=== PATIENT | female | born 1960 | race Caucasian/White ===

== ENCOUNTER 2018-08-26 15:19 | Inpatient (IN) | payer OTHER ==
[~2018-08-26] VITALS: Ht 170.2 cm; Wt 80.0 kg
--- NOTE | 2018-08-26 15:30 | NUR ---
PT BROUGHT IN BY KOLE DAVILA FOR ETOH INTOXICATION AND POSSIBLE OVERDOSE. PT LIVES IN THE BACK HOUSE OF A PROPERTY THAT SHE SHARES WITH HER MOTHER. MOTHER FOUND PT. ON GROUND IN HER HOME. 911 WAS CALLED. UPON ARRIVAL OF EMS PT STATES SHE SHE HAD BEEN DRINKING BEER AND TOOK AND UNKNOWN AMOUNT OF ANTI-ANXIETY MEDICATION. WHEN ASKED WHAT THE MEDICATION IS PT STATES "THEY WERE BLUE" SPEECH IS SLOW AND SLURRED. PT REPETATIVE AND QUESTIONING WHY SHE IS HERE. PT RE-ORIENTED MULTIPLE TIMES. PT ALSO ADMITS TO SI . PT ARRIVED WITH C-COLLAR IN PLACE. CLOTHING REMOVED. PLACED ON CM. KOLE DAVILA AT BEDSIDE TO WRITE [id number] HOLD
--- NOTE | 2018-08-26 15:32 | NUR ---
PT BECOMING AGITATED AND UNCOOPERATIVE. ATTEMPTING TO REMOVE C-COLLAR AND GET OUT OF BED. PT ADVISED SHE WAS NOT STEADY ENOUGHT TO WALK DUE TO ETOH AND MEDICATION INGESTION. PT STATED ' I DON'T GIVE A FUCK WHAT YOU SAY IM GOING TO TO THE BATHROOM' RESTRAINTS APPPLIED FOR PT. SAFETY. PT OFFERED BED HOLDER. PT REFUSED. REMAINS ON CM. AT THIS TIME.
--- NOTE | 2018-08-26 16:00 | NUR ---
PT BELONGINGS TAKEN LABELED AND PLACED IN RADIO ROOM.
--- NOTE | 2018-08-26 16:13 | NUR ---
PT PULLED OUT FIRST IV SL. STARTED NEW IV LOCK TO R FA. AWAITING VITAMIN IV BAG FROM PHARMACY
--- NOTE | 2018-08-26 16:20 | NUR ---
MOTHER AT BEDSIDE CLAIMS THAT PT'S FRIEND ADMITTED TO GIVING PT 20 TABS OF 1MG XANAX. MOTHER CLAIMS PT MAY OR MAY NOT HAVE TAKEN ALL 20. WILL CALL POISON CONTROL
--- NOTE | 2018-08-26 16:22 | NUR ---
XRAY AT BEDSIDE
--- NOTE | 2018-08-26 16:25 | NUR ---
SPOKE WITH POISON CONTROL RAYMON. RECOMMENDATIONS ARE LAB CHECK WITH CBC, CMP, TYLENOL AND ASP LEVEL AND UDS. ALSO MONITOR FOR R DEPRESSSION. NO FURTHER TREATMENT OR RECOMMENDATIONS
[2018-08-26 16:26] LABS: UA SPECIFIC GRAVITY <=1.005 (1.005-1.035); microscopic required? YES; urine erythrocyte 1+ (NEGATIVE)
[2018-08-26 16:26] LABS: BASOPHIL % 1.5 % (0-2); PLATELET COUNT 207 x10^3mcL (130-400); RED CELL DISTRIBUTION WIDTH 15.3 % (11.5-14.5)
[2018-08-26 16:27] LABS: CALCIUM 9.1 mg/dL (8.5-10.1); CARBON DIOXIDE 29.4 mmol/L (21-32); CHLORIDE SERUM 107 mmol/L (98-107); CREATININE SERUM 0.6 mg/dL (0.6-1.0); GFR1 > 60 mL/min; GLUCOSE SERUM 95 mg/dL (74-106); POTASSIUM SERUM 4.4 mmol/L (3.5-5.1); SODIUM SERUM 145 mmol/L (136-145)
[2018-08-26 16:33] LABS: AMPHETAMINE QUAL UR NONE DETECTED (See below)
--- NOTE | 2018-08-26 16:38 | NUR ---
PT UP TO BSC WITH CUSTOMS COMPLIANCE SPECIALIST AT BEDSIDE
[2018-08-26 16:40] LABS: ALBUMIN 3.5 g/dL (3.4-5.0); ALKALINE PHOSPHATASE 110 U/L (46-116); ALT/SGPT 24 U/L (14-59); AST/SGOT 15 U/L (15-37); BILIRUBIN TOTAL 0.2 mg/dL (0.20-1.00); CHOLESTEROL 189 mg/dL (<200); HDL CHOLESTEROL 58 mg/dL (40-60); LIPASE 60 IU/L (73-393); MAGNESIUM 2.2 mg/dL (1.8-2.4); T4(THYROXINE) 6.5 ug/dL (4.7-13.3); TOTAL PROTEIN, SERUM 6.5 g/dL (6.4-8.2)
--- NOTE | 2018-08-26 17:24 | NUR ---
PT REFUSED CT. DR MICHEL AWARE. PT YELLING "DONT TOUCH ME."
--- NOTE | 2018-08-26 17:36 | NUR ---
PT PLACED ON BED HOLDER. PLACED BACK IN RESTRAINTS FOR DANGER TO SELF
--- NOTE | 2018-08-26 18:44 | NUR ---
PT REPOSITIONED FOR COMFORT. REQUESTING RESTRAINTS BE REMOVED. UPON SLEEVE MACHINE TENDER REPORT I WILL PASS ON TO SLEEVE MACHINE TENDER. EXPLAINED TO PT WHY SHE IS IN RESTRAINTS AND THAT IF THEY ARE REMOVED SHE CANNOT RIP OUT HER IV AND RUN OFF. PT VERBALIZED UNDERSTANDING
--- NOTE | 2018-08-26 19:10 | NUR ---
RECEIVED REPORT FROM AARON WEI AND ASSUMED CARE OF PATIENT.
--- NOTE | 2018-08-26 19:26 | NUR ---
PT. CLEARED FOR D/C. GIVEN ACI AND RX. PT. AAOX4, TALKING AND RESPONDING APPROPRIATELY, BREATHING E/U. NOT IN ANY APPARENT DISTRESS. AMBULATED OUT OF ED WITH STEADY GAIT.
--- NOTE | 2018-08-26 19:50 | NUR ---
RESIDENT AT BEDSIDE. PT. REPOSITIONED TO SIT UP IN [facility] PER HER REQUEST. PT. AAOX4, TALKING AND RESPONDING APPROPRIATELY, BREATHING E/U. NAD. STATES SHE DOES NOT REMEMBER WHY SHE WAS BROGUHT HERE. STATES ' I WAS DRINKIG AND TOOK A LITTLE BLUE PILL FOR ANXIETY'. STATES SHE DOES NOT REMEMBER PULLING OUT IV AND BEING PLACED ON RESTRAINTS. PT. COOPERATIVE WITH STAFF AND RESTRAINTS REMOVED. INFORMED PT. THAT IF SHE BECOMES COMBATIVE OR UNCOOPERATIVE WITH STAFF WE WILL HAVE TO PLACE RESTRAINTS BACK ON FOR HER SAFETY. PT. VERBALIZES UNDERSTANING AND AGREES NOT TO PULL OUT IV OR TRY TO GET OUT OF BED. PER DR. ANAND BRIAN TO HAVE WATER AND GIVEN PER HER REQUEST. CALL LIGHT IN REACH. PT. IN FULL VIEW OF NURSING STATION. WILL CONTINUE TO MONITOR.
[2018-08-26 20:13] LABS: CHOLESTEROL/HDL RATIO 3.3
--- NOTE | 2018-08-26 20:50 | NUR ---
PT. TRYING TO GET OUT OF BED AND STATES "I WANT SOME MASSHED POTATOES AND JUICE". PT. TOOK IV OUT AND STATES SHE IS TIRED OF WAITING FOR FOOD. ADVISED PT. TO GET BACK IN BED AND THAT SHE IS ON A HOLD. PT. REFUSING AND STATES " I WANT TO GO AND SMOKE". PT. REORRIENTED AND INFORMED THAT SHE IS ON A HOLD AND CANNOT LEAVE. DR. OBRIEN MADE AWARE AND ATIVAN 1MG IM ORDERED. EMT WAS ABLE TO CALM PATIENT DOWN AND ASSIST HER BACK TO BED. NANDO GIVEN PER HER REQUEST. PT. IN FULL VIEW OF NURSING STATION. WILL CONTINUE TO MONITOR.
--- NOTE | 2018-08-26 21:19 | NUR ---
PT. GIVEN ATIVAN IM PER ORDERS. PT. LAYING ON GURNEY IN POSITON OF COMFORT. BREATHING E/U. NOT IN ANY APPARENT DISTRESS. STATES 'I FEEL BETTER AFTER EATING'. CALL LIGHT IN REACH, WILL CONTINUE TO MONITOR.
--- NOTE | 2018-08-26 21:44 | NUR ---
ASSISTED PT. UP TO BEDSIDE COMMODE. HAD LALY SOFT BM AND APROX 200ML CLEAR YELLOW URINE OUTPUT.
--- NOTE | 2018-08-26 22:01 | NUR ---
SPOKE TO POISON CONTROL AND INFORMED OF PATIENT STATUS. ADVISED TO HAVE BLOOD ALCOHOL AND SALICYLATES DRAWN AGAIN. INFORMD DR. OBRIEN AND STATE SHE WILL ORDER TO HAVE RECHECK OF LABS AT MIDNIGHT.
--- NOTE | 2018-08-26 22:30 | NUR ---
PT. SLEEPING, EASILY ARROUSABLE. BREATHING E/U. IN FULL VIEW OF NURSING STATION. SAFETY PRECAUTIONS IN PLACE. NO COMPLAINTS AT THIS TIME. CALL LIGHT IN REACH. WILL CONTINUE TO MONITOR.
--- NOTE | 2018-08-26 23:30 | NUR ---
PT. SLEEPING EASILY ARROUSABLE. BREATHING E/U. NOT IN ANY APPARENT DISTRESS AT THIS TIME. IN FULL VIEW OF NURSING STATION. CALL LIGHT IN REACH. WILL CONTINUE TO MONITOR.
--- NOTE | 2018-08-26 23:50 | NUR ---
ASSISTED PT. UP TO BEDSIDE COMMODE. VOIDED X1. PT. AAOX4,TALKING AND RESPONDING APPROPRIATELY, BREATHING E/U. NO COMPLAINTS AT THIS TIME. WILL CONTINUE TO MONITOR.
--- NOTE | 2018-08-27 01:05 | NUR ---
PT. SLEEPING. EASILY ARROUSABLE. LAB AT BEDSIDE FOR LAB DRAW. PT. IN FULL VIEW OF NURSING STATION. NO COMPLAITS AT THIS TIME. WILL CONTINUE TO MONITOR.
--- NOTE | 2018-08-27 02:35 | NUR ---
PT. SLEEPING, EASILY ARROUSABLE. BREATHING E/U. NOT IN ANY APPARENT DISTRESS AT THIS TIME. CALL LIGHT IN REACH. WILL CONTINUE TO MONITOR.
--- NOTE | 2018-08-27 03:20 | NUR ---
ASSISTED PT. TO BEDSIDE COMMODE. GAIT UNSTEADY. PT. VOIDED APROX 150ML OF CLEAR YELLOW URINE.
--- NOTE | 2018-08-27 04:00 | NUR ---
SPOKE TO POISON CONTROL AND INFORMED OF PT. STATUS. POISON CONTROL STATES NO FURTHER CONTACT REQUIRED AND CASE HAS BEEN CLOSED.
--- NOTE | 2018-08-27 04:20 | NUR ---
PT. LAYING ON GURNEY IN POSITION OF COMFORT. SLEEPING, EASILY ARROUSABLE. BREATHING E/U. NOT IN ANY APPARENT DISTRESS. IN FULL VIEW OF NURSING STATION. WILL CONTINUE TO MONITOR.
[2018-08-27] MEDS ORDERED: NORCO 10-325 T1 EACH (04:21)
[2018-08-27] MEDS ORDERED: MELOXICAM7.5 M1 (04:21)
[2018-08-27 05:16] LABS: BASOPHIL % 0.7 % (0-2); CALCIUM 8.8 mg/dL (8.5-10.1); CARBON DIOXIDE 28.6 mmol/L (21-32); CHLORIDE SERUM 108 mmol/L (98-107); CREATININE SERUM 0.7 mg/dL (0.6-1.0); GFR1 > 60 mL/min; GLUCOSE SERUM 84 mg/dL (74-106); PLATELET COUNT 188 x10^3mcL (130-400); POTASSIUM SERUM 4.1 mmol/L (3.5-5.1); SODIUM SERUM 145 mmol/L (136-145)
[2018-08-27 05:25] LABS: RED CELL DISTRIBUTION WIDTH 15.2 % (11.5-14.5)
--- NOTE | 2018-08-27 06:10 | NUR ---
ASSISTED PT. UP TO BEDSIDE COMMODE. PT. AAOX4, TALKING AND RESPONDING APPROPRIATELY, BREATHING E/U. NOT IN ANY APPARENT DISTRESS. NO COMPLAINTS AT THIS TIME. PT. CONTINUES TO BE COOPERATIVE WITH STAFF. DENIES PAIN AT THIS TIME. CALL LIGHT IN REACH. PT. IN FULL VIEW OF NURSING STATION. WILL CONTINUE TO MONITOR.
--- NOTE | 2018-08-27 06:25 | NUR ---
PT. REQUESTING NORCO FOR PAIN. STATES SHE TAKES NORCO AT HOME FOR CHRONIC BACK PAIN. SPOKE TO RESIDENT CMO AND INFORMED HIM. STATES HE WILL ORDER PAIN MED FOR PT.
--- NOTE | 2018-08-27 06:30 | NUR ---
SPOKE TO PATIENTS MOM AWAIS AND INFORMED HER OF PATIENTS STATUS. ALL QUESTIONS AND CONCERNS ADDRESSED. STATES TO CALL HER AT [phone] FOR FURTHER UPDATES OR CONCERNS.
--- NOTE | 2018-08-27 07:15 | NUR ---
PT. GIVEN PROVIDED BREAKFAST TRAY. TOLERATING WELL.
--- NOTE | 2018-08-27 07:22 | NUR ---
ATTEMPTED TO CALL REPORT. [facility] REQUEST TO CALL BACK IN 5MIN.
--- NOTE | 2018-08-27 07:35 | NUR ---
REPORT CALLED TO I RN FOR FURTHER CARE OF PATIENT. ALL QUESTIONS AN CONCERNS ADDRESSED.
--- NOTE | 2018-08-27 08:15 | NUR ---
RECEIVED PT TRANSFERED FROM ED VIA GURBEY, ASSISTED BY 2 NURSES, IN NO ACUTE DISTRESS, INTOXICATION, 5150 HOLD, AXOX3, DROWSY, PERRLA, NO REDNESSS/DRAINAGE, VERBAL, CLEAR SPEECH, NO FACIAL DROOP/SLURRED SPEECH NOTED, DENIED ARROYO/N/V/CP/PRESSURE AT THIS TIME, LUNGS CTA, AT AR, 98%, IN NO RESP DISTRESS, CHEST RISE SYMMETRICALLY, ABD FLAT AND NON-TENDER TO TOUCH, BS ACTIVE X 4, LAST BM 08/27/18, LOOSE STOOL, ABLE TO MOVE ALL EXTREMETIES WITH NO DIFFICULTIES, INSTABLE GAITH, NEED ASSISTANCE TO BATHROOM, DISCOLORATION TO R KNEE, BUE AND UNDER R EYE, CONTINENT, V/S: 102/62 (69), 0/10, 98% RA, 98.5, 86, 18, SITTER 1:1, ALL NEEDS AT THIS TIME, SAFETY PRECAUTION FOLLOWED, CONTINUE TO MONITOR
[2018-08-27 09:34] VITALS: BP 102/62
--- NOTE | 2018-08-27 09:54 | NUR ---
PT IN NO ACUTE DISTRESS, RESTIGN IN BED, AM MED GIVEN PER MD ORDER VIA EMAR, TAKEN WELL, NO ASE NOTED AT THIS TIME, CONTINUE TO MONITOR
--- NOTE | 2018-08-27 11:04 | NUR ---
CT SCAN CALLED AND NOTOFIED ABOUT PT REFUSED ORDER YESTERDAY, PT AGREED TO HAVE CT SCAN AT NOON, GROVER AT CT SCAN AWARE, CONTINUE TO MONITOR
--- NOTE | 2018-08-27 11:55 | NUR ---
PT IN NO ACUTE RESP DISTRESS, ASSISTED TO CHAIR, REFUSEF TYLENOL 325MG X 2 TABS FOR PAIN, REUQEST NORCO 10/325MG TAB, DR KAYLI [id number], AWATING FOR CALLING BACK, CHARGE NURSE CT MADE AWARE, CONTINUE TO MONITOR
[2018-08-27 12:45] VITALS: BP 102/53
--- NOTE | 2018-08-27 12:45 | NUR ---
PT APPEARED AGRESSIVE AND AGITATED, REFUSED TO TAKE ATIVAN, REFUSED TYLENOL 325MG X 2 TABS FOR PAIN, TYLENOL WASTED, REQUESTED NORCO 10/325MG FOR PAIN, ATTEMPTED TO LEAVE HOSPITAL, AWARE ON 5149 HOLD, STILL WANTED TO LEAVE, PAGED, CHARGE NURSE AWARE, CONTINUE TO MONITOR
--- NOTE | 2018-08-27 13:15 | NUR ---
MOTHER CALLED AND UPDATED WITH PT CURRENT CONDITION, REPORTED THAT PT TOOK NORCO 10/325MG QID FOR BACK PAIN, PT OD ON XANAX 1MG, MADE AWARE
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
--- NOTE | 2018-08-27 13:35 | NUR ---
NEW ORDER WITH NORCO 5/325MG 1 TAB , ATIVAN 1MG TAB, PT AWARE, MED GIVEN, TAKEN WELL, NO ASE NOTED AT THIS TIME, PT CALMED AND ASSISTED BACK TO BATHROOM AND BACK TO BED, VOID X 1, SITTER 1:1 AT BEDSIDE, SAFETY PROTOCOL FOLLOWED, IN NO CURRENT ACUTE DISTRESS, CONTINUE TO MONITOR
--- NOTE | 2018-08-27 14:23 | NUR ---
PT VERBALLY AGREED TO HAVE CT SCAN DONE TO HEAD AND SPINE AREA, RESTING IN BED, EYES CLOSED, IN NO ACUTE DISTRESS, CONTINUE TO MONITOR
[2018-08-27 16:44] VITALS: Ht 170.2 cm; Wt 80.0 kg
[2018-08-27 16:50] VITALS: BP 108/67
--- NOTE | 2018-08-27 16:50 | NUR ---
PT IN BED, RESTING WITH EYE CLOSED, SITTER 1:1, MOTHER AT BEDSIDE, IN NO ACUTE RESP DISTRESS, SAFETY PRECAUTION FOLLOWED, CONTINUE TO MONITOR
--- NOTE | 2018-08-27 17:11 | NUR ---
PT AWATING FOR DC CLEARANCE, ASKED TO REMOVED TELE MONITOR, TELE MONITOR REMOVED, RETURNED BACK TO [facility], IN NO ACUTE DISTRESS, CONTINUE TO MONITOR
--- NOTE | 2018-08-27 17:18 | NUR ---
IV REMOVED, IV CATH TIP INTACT, NO ACTIVE BLEEDING NOTED, MOTHER AT BEDSIDE
--- NOTE | 2018-08-27 17:28 | NUR ---
PAULA PAPER DISCUSSED AND EDUCATED PT, VERBALLY UNDERSTANDING, PT AWARE OF MENTAL HEALTH AND PSYCH FOLLOW UP GROUP FOR SUPPORT, BOTH MOTHER AND PT AWARE, DC PAPER SIGNED AND KEPT IN PT CHART, COPY GIVEN TO PT, PT IN NO ACUTE DISTRESS, PT ASSISTED TO THE LOBBY VIA WC BY NURSING STAFF
== END 2018-08-27 17:37 | disposition home or self-care (01) | DRG 896 ==
LOC: ED 15:19 → DU 17:43
PROVIDERS: Emergency Medicine; ADMIT Internal Medicine
DX: F10.229 Alcohol dependence with intoxication, unspecified (principal); G93.41 Metabolic encephalopathy; R45.851 Suicidal ideations; T42.4X2A Poisoning by benzodiazepines, intentional self-harm, initial encounter; F32.9 Major depressive disorder, single episode, unspecified; Y90.0 Blood alcohol level of less than 20 mg/100 ml; M17.0 Bilateral primary osteoarthritis of knee; M51.26 Other intervertebral disc displacement, lumbar region; K45.8 Other specified abdominal hernia without obstruction or gangrene; Z68.28 Body mass index [BMI] 28.0-28.9, adult; Y92.018 Other place in single-family (private) house as the place of occurrence of the external cause
CPT/HCPCS: 82962; 90715; G0378; G0480; J2060; J3411

== ENCOUNTER 2018-10-21 14:39 | Emergency (ER) | payer OTHER ==
[~2018-10-21] VITALS: Ht 170.2 cm; Wt 79.8 kg
[~2018-10-21 14:39] MED LIST: MELOXICAM7.5 M1; NORCO 10-325 T1 EACH
[2018-10-21 15:34] LABS: BASOPHIL % 0.7 % (0-2); PLATELET COUNT 225 x10^3mcL (130-400); RED CELL DISTRIBUTION WIDTH 14.1 % (11.5-14.5)
[2018-10-21 15:44] LABS: CALCIUM 8.1 mg/dL (8.5-10.1); CHLORIDE SERUM 110 mmol/L (98-107); CREATININE SERUM 0.8 mg/dL (0.6-1.0); GFR1 > 60 mL/min; GLUCOSE SERUM 85 mg/dL (74-106); POTASSIUM SERUM 3.9 mmol/L (3.5-5.1); SODIUM SERUM 146 mmol/L (136-145)
[2018-10-21 17:55] LABS: AMPHETAMINE QUAL UR NONE DETECTED (See below)
[2018-10-22 11:04] VITALS: BP 127/85
== END 2018-10-22 11:04 | disposition home or self-care (01) ==
LOC: ED 14:39
PROVIDERS: Emergency Medicine
DX: T51.91XA Toxic effect of unspecified alcohol, accidental (unintentional), initial encounter (principal); F17.210 Nicotine dependence, cigarettes, uncomplicated; F43.20 Adjustment disorder, unspecified; M19.90 Unspecified osteoarthritis, unspecified site; Y92.89 Other specified places as the place of occurrence of the external cause
CPT/HCPCS: G0480; J1200; J1630; J2060; J7030

== ENCOUNTER 2018-10-23 17:55 | Inpatient (IN) | payer OTHER ==
[~2018-10-23] VITALS: Ht 170.2 cm; Wt 82.2 kg
[2018-10-23 18:08] VITALS: Ht 170.2 cm; Wt 82.2 kg
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
--- NOTE | 2018-10-23 18:15 | NUR ---
PT NOW BEING MORE COOPERATIVE, ASKED TO USED THE RESTROOM. PT GAIT EXTREMELY UNSTEADY. BEDSIDE COMMODE BROUGHT TO ROOM FOR PT TO USE.
--- NOTE | 2018-10-23 18:18 | NUR ---
ASSISTED PT TO BEDSIDE COMMODE, PT WAS ABLE TO USE COMMODE. I ACCOMPANIED PT IN RM WHILE PT USED COMMODE. PT FINISHED AND STOOD UP AND STATED "YOU'RE NOT GONNA LIKE ME" AND STARTED TO WALK OUT OF RM. I CONTINUED TO HOLD PT ARM TO SUPPORT HER AND ATTEMPTED TO REDIRECT HER. PT SHOOK LOOSE AND CONTINUED TO WALK OUT EMERGENCY EXIT DOOR. SECURITY WAS CALLED.
--- NOTE | 2018-10-23 18:25 | NUR ---
LATE ENTRY RAPID RESPONSE WAS CALLED TO ER PARKING LOT. MYSELF AND MULTIPLE OTHER STAFF MEMBERS WENT OUTSIDE. PT WAS ON SIDE WALK OUTSIDE OF ER PARKING LOT STUMBLING AROUND. STAFF MEMBERS WERE WALKING OUT TO ASSIST PT, PT FELL BACKWARDS HITTING BACK AND HEAD. STAFF BROUGHT OUT GURNEY AND C-COLLAR FOR PT. PT DID NOT LOSE CONSCIOUSNESS DURING INCIDENT, PT WAS ALERT AND AWARE OF WHAT HAD OCCURRED. PT CONTINUED TO BE UNCOOPERATIVE SHE WAS BOUGHT INSIDE ED TO BED 8. HAND OFF REPORT WAS GIVEN TO SANJUANA SKINNER.
[2018-10-23 18:29] LABS: CALCIUM 7.8 mg/dL (8.5-10.1); CARBON DIOXIDE 22.1 mmol/L (21-32); CHLORIDE SERUM 107 mmol/L (98-107); GFR1 > 60 mL/min; GLUCOSE SERUM 83 mg/dL (74-106); POTASSIUM SERUM 3.6 mmol/L (3.5-5.1); SODIUM SERUM 141 mmol/L (136-145)
[2018-10-23 18:35] LABS: BASOPHIL % 1.2 % (0-2); PLATELET COUNT 210 x10^3mcL (130-400)
[2018-10-23 18:39] LABS: RED CELL DISTRIBUTION WIDTH 14.6 % (11.5-14.5)
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
--- NOTE | 2018-10-23 19:23 | NUR ---
ASSISTED PATIENT TO CT FOR SCANS. PT TOLERATED WELL, VSS. WILL CONTINUE TO MONITOR.
--- NOTE | 2018-10-23 19:40 | NUR ---
CAME IN PATIENT'S ROOM, MD, 2 ERTS AND 1 NURSE HOLDING THE PATIENT DOWN. PT ATTEMPTING TO KICK STAFF AND ALSO SCREAMING. " I DONT LIKE GUYS. TELL HIM TO LEAVE THE ROOM." RESTRAINTS TO BE APPLIED
--- NOTE | 2018-10-23 19:50 | NUR ---
PROVIDED REPORT TO VILLA FOR CONTINUED CARE OF PATIENT.
--- NOTE | 2018-10-23 19:56 | NUR ---
BP DROPPED FROM 91/51 MAP 62- STARTED IV FLUIDS PER MD ORDERS. WILL CONTINUE TO MONITOR.
--- NOTE | 2018-10-23 19:59 | NUR ---
RECEIVED REPORT FROM ZEUS SKINNER RN. I WILL BE ASSUMING FURTHER CARE OF THIS PATIENT.
--- NOTE | 2018-10-23 20:01 | NUR ---
PT RESTING WITH EYES CLOSED, AROUSABLE TO TOUCH, PT IS AA0X3, ORIENTED TO SELF, PLACE, AND BIRTHDAY. PT UNABLE TO RECALL LOCATION OR YEAR. PT IN NO DISTRESS, RESP E/U, SKIN INTACT, WARM AND DRY. PT ON FULL CM, MD AWARE OF VS. WILL CONT TO MONITOR.
--- NOTE | 2018-10-23 20:38 | NUR ---
DR VELARDE NOTIFIED OF VITAL SIGN, ORDERED 1 LITTER BOLUS OF NORMAL SALINE IV. SEE EMAR, FLUIDS INFUSING NO INFILTRATION NOTED OR PAIN TO IV SITE. WILL CONT TO MONITOR.
[2018-10-23 20:57] LABS: CHOLESTEROL/HDL RATIO 3.3; MAGNESIUM 2.4 mg/dL (1.8-2.4)
--- NOTE | 2018-10-23 21:36 | NUR ---
SPOKE TO DR OBRIEN, ADVISED OF PATIENT'S VITAL SIGNS, PER MD SHE WILL CHANGE PATIENT ADMITTANCE TO TELEMETRY UNIT AND ORDER A 500ML BOLUS IF NS. PER MD, OK TO ADMIT PT AFTER BOLUS. WILL CONT TO MONITOR.
--- NOTE | 2018-10-23 22:54 | NUR ---
PT STATED "I HAVE TO USE THE BATHROOM." INSTRUCTED PT SHE CAN USE A BEDPAN. GABRIEL RN AT THE BEDSIDE TO ASSIST ME AND PATIENT REFUSED REMOVAL OF HER PANTS TO USE THE BEDPAN. PT STATED, "DO NOT TOUCH ME, I SAID YOU CAN NOT TOUCH ME. I DO NOT WANT HELP, I WANT TO GO TO THE BATHROOM." INSTRUCTED PATINENT THAT HER ONLY OPTION IS TO USE THE BEDPAN FOR HER SAFETY. PATIENT REFUSED. PT STATED "I WILL JUST PEE ON MYSELF THEN." WILL TRY AGAIN AT A LATER TIME AND LET PATIENT CALM. PT ON MONITOR, IN VIEW OF NURSE STATION. WILL CONT TO MONITOR.
--- NOTE | 2018-10-23 23:34 | NUR ---
GAVE RPEORT TO BENNIE WEI ON TELE WHO WILL RESUME FURHTER CARE OF THIS PATIENT.
[2018-10-24 00:10] VITALS: BP 119/77
--- NOTE | 2018-10-24 00:38 | NUR ---
RECEIVED REPORT FROM SURU RN FOR CONTINUATION OF CARE. PATIENT RESTING IN BED AT THIS TIME. RESPIRATION EVEN AND UNLABORED, ON ROOM AIR. ONGOING BANANA BAG AT THE LEFT ANTECUBITAL AREA. NO SIGN OF DISCOMFORT/PAIN AT THIS TIME. WILL CONITNUE TO MONITOR.
[2018-10-24 05:00] VITALS: BP 123/78
[2018-10-24 06:07] LABS: BASOPHIL % 0.9 % (0-2); PLATELET COUNT 151 x10^3mcL (130-400); RED CELL DISTRIBUTION WIDTH 14.4 % (11.5-14.5)
[2018-10-24 06:15] LABS: CALCIUM 6.9 mg/dL (8.5-10.1); CARBON DIOXIDE 20.6 mmol/L (21-32); CHLORIDE SERUM 118 mmol/L (98-107); CREATININE SERUM 0.7 mg/dL (0.6-1.0); GFR1 > 60 mL/min; GLUCOSE SERUM 63 mg/dL (74-106); POTASSIUM SERUM 4.1 mmol/L (3.5-5.1); SODIUM SERUM 150 mmol/L (136-145)
--- NOTE | 2018-10-24 06:22 | NUR ---
PATIENT RESTING IN BED. RESPIRATION EVEN AND UNLABORED, ON ROOM AIR. NO SIGN OF DISCOMFORT/PAIN. DISCONTINUED IV FLUIDS ORDERED. IV SITE NO SIGN OF INFILTRATION. ASSISTED WITH NEEDS. SAFETY OBSERVED. SEIZURE PRECAUTION OBSERVED. PLACED BED IN THE LOWEST POSITION. PLACED CALL LIGHT WITHIN REACH AT ALL TIMES.
--- NOTE | 2018-10-24 07:25 | NUR ---
RECIEVED PT FROM NIGHT NURSE. PT IS LAYING DOWN IN BED WITH HOB UP RESTING WITH EYES CLOSED. PT EASILY AROUSABLE, RESPIRAITIONS EVEN AND UNLABORED ON ROOM AIR. IV SITE PATENT WITH NO SIGNS OF ERYTHEMA OR SWELLING. BED IN LOWEST POSITION, CALL LIGHT WITHIN REACH. WILL CONTINUE TO MONITOR.
[2018-10-24 08:06] VITALS: BP 121/81
[2018-10-24] MEDS ORDERED: FOL1 PO (11:26)
[2018-10-24] MEDS ORDERED: THERA-M CAPLET1 EACH PO (11:27)
[2018-10-24] MEDS ORDERED: THI100 PO (11:27)
[2018-10-24 13:08] VITALS: BP 121/81
[2018-10-24 16:21] VITALS: BP 133/78
--- NOTE | 2018-10-24 17:15 | NUR ---
PT AWAKE, ALERT AND ORIENTED AT TIME OF DISCHARGE. PT LOOKS TO BE IN NO ACUTE DISTRESS AND DENIES ANY PAIN AT TIME OF DISCHARGE. PT DISCHARGED HOME AND WALKED TO [facility] ACCOMPANIED BY NURSE AND FAMILY MEMBER WITH BELONGINGS IN HAND. PROVIDED PT WITH EDUCATION AND PRESCRIPTIONS. PT AND FAMILY MEMBER VERBALIZED UNDERSTANDING OF INFORMATION. PT AND FAMILY MEMBER REQUEST OUTSIDE RESOURCES FOR ALCOHOL CESSATION, PROVIDED PT AND FAMILY MEMBER PACKET FROM [employer] WITH RESOURCES. INFORMED PT AND FAMILY MEMBER OF THE NEED TO MAKE AN APPOITNMENT WITHIN ONE WEEK OF DISCHARGE TO FOLLOW UP WITH A PCP, PT AND FAMILY MEMBER VERBALIZED UNDERSTANDING. IV REMOVED AND CATHETER FULLY INTACT. ALL QUESTIONS AND CONCERNS ADDRESSED.
== END 2018-10-24 17:21 | disposition home or self-care (01) | DRG 917 ==
LOC: ED 17:55 → MU 20:18
PROVIDERS: Emergency Medicine; ADMIT Internal Medicine
DX: T51.0X1A Toxic effect of ethanol, accidental (unintentional), initial encounter (principal); G92 Toxic encephalopathy; F10.121 Alcohol abuse with intoxication delirium; E87.0 Hyperosmolality and hypernatremia; I95.89 Other hypotension; E78.1 Pure hyperglyceridemia; M50.20 Other cervical disc displacement, unspecified cervical region; M17.0 Bilateral primary osteoarthritis of knee; Y90.8 Blood alcohol level of 240 mg/100 ml or more; Y92.481 Parking lot as the place of occurrence of the external cause
CPT/HCPCS: C9113; G0378; G0480; J1200; J1630; J2060; J3490; J7030; J7040

== ENCOUNTER 2018-10-30 18:03 | Emergency (ER) | payer OTHER ==
[~2018-10-30] VITALS: Ht 170.2 cm; Wt 77.1 kg
[~2018-10-30 18:03] MED LIST changes: +FOL1 PO; +THERA-M CAPLET1 EACH PO; +THI100 PO
[2018-10-30 18:29] VITALS: Ht 170.2 cm; Wt 77.1 kg
[2018-10-30 20:59] VITALS: BP 105/61
== END 2018-10-30 20:59 | disposition home or self-care (01) ==
LOC: ED 18:03
DX: S63.502A Unspecified sprain of left wrist, initial encounter (principal); S20.212A Contusion of left front wall of thorax, initial encounter; F10.10 Alcohol abuse, uncomplicated; M19.90 Unspecified osteoarthritis, unspecified site; Z90.49 Acquired absence of other specified parts of digestive tract; Z90.89 Acquired absence of other organs; Z90.79 Acquired absence of other genital organ(s); W01.0XXA Fall on same level from slipping, tripping and stumbling without subsequent striking against object, initial encounter; Y93.89 Activity, other specified; Y92.091 Bathroom in other non-institutional residence as the place of occurrence of the external cause; Y99.8 Other external cause status
CPT/HCPCS: J1885

== ENCOUNTER 2019-01-10 17:41 | Emergency (ER) | payer OTHER ==
[~2019-01-10] VITALS: Ht 170.2 cm; Wt 81.6 kg
[2019-01-10 17:46] VITALS: BP 140/80; Ht 170.2 cm; Wt 81.6 kg
== END 2019-01-10 18:16 | disposition home or self-care (01) ==
LOC: ED 17:41
DX: F10.129 Alcohol abuse with intoxication, unspecified (principal); M19.90 Unspecified osteoarthritis, unspecified site; Z90.49 Acquired absence of other specified parts of digestive tract; Z90.710 Acquired absence of both cervix and uterus; Y90.4 Blood alcohol level of 80-99 mg/100 ml